=== PATIENT | female | born 1930 | race Caucasian/White ===

== ENCOUNTER 2019-04-27 05:36 | Observation (INO) ==
--- NOTE | 2019-04-27 05:50 | PROVIDER DOCUMENTATION ---
HPI-Musculoskeletal Pain/Inj - GENERAL Chief Complaint: Fall Stated Complaint: weakness/ headache Time Seen by Provider: 04/27/19 05:48 Source: patient - HX OF PRESENT ILLNESS-MUSKULOSKELTAL Nature of Presenting Problem: Patient is a 88 year old white female complaining of generalized weakness and persistent left sided headache and bruising for past 2 weeks after falling off couch at home. Denies LOC. Patient arrives with GCS of 15, oriented to person,place, and time. Quality of Pain: reports: aching Severity in ED: moderate Onset/Duration: other (2 weeks ago) Timing: still present Any recent injury?: No Locality of Occurance: Home Similar Symptoms Previously?: Yes Recently seen or treated by another doctor?: No - FALL INJURY Location of Pain/Injury: reports: head, lower extremity (left hip and left knee) Pain Radiation: reports: no radiation Symptoms prior to fall:: reports: none Loss of Consciousness: no loss of consciousness Injury Associated Symptoms: reports: denies symptoms - HIP/PELVIS PAIN/INJURY Hip Pain Location: reports: hip (L) - LOWER EXTREMITY PAIN/INJURY Lower Extremities Pain: knee: left Review of Systems - Adult - REVIEW OF SYSTEMS - ADULT Constitutional: reports: no symptoms reported Eyes: reports: no symptoms reported Ears, Nose, Mouth & Throat: reports: no symptoms reported Cardiovascular: denies: chest pain Respiratory: denies: shortness of breath Gastrointestinal: denies: abdominal pain, nausea, vomiting Genitourinary: reports: no symptoms reported Musculoskeletal: reports: see HPI. denies: neck pain Integumentary: reports: no symptoms reported Neurological: reports: headache/migraines Psychiatric: reports: no symptoms reported Endocrine: reports: no symptoms reported Hematologic/Lymphatic: reports: no symptoms reported Allergic/Immunologic: reports: no symptoms reported All Other Systems: Reviewed and Negative Past History - Adult - PAST MEDICAL HISTORY-ADULT Review of Records: reports: Old Records Reviewed, Nursing Assessment Review, Medications Reviewed, Social history reviewed & non-contributory. Major Childhood Illnesses: reports: denies history Cardiovascular: reports: HTN Gastrointestinal: reports: GERD Genitourinary: reports: denies history Musculoskeletal: reports: arthritis Neurological: reports: denies history Psychiatric: reports: denies history - PRIOR SURGERIES/PROCEDURES Surgical/Procedure History: reports: reviewed, not pertinent, joint replacement (hip), other - PRIOR HOSPITALIZATIONS Prior Hospitalizations: reports: for other non-related - IMMUNIZATION STATUS Childhood Immunizations: See Nurse Assessment Flu Vaccine: See Nurse Assessment - FAMILY HISTORY Family History: reviewed, not pertinent - SOCIAL HISTORY Smoking: denies Substance Use: denies Alcohol Use Frequency: rarely Living Situation: family Physical Exam-Injury Related - Physical Exam-Injury Related General Appearance: alert, no apparent distress Eyes: PERRL/EOMI, other (bruising and tenderness over left upper face without deformities) Neck: non-tender, supple Respiratory: lungs clear, no respiratory distress, no accessory muscle use Cardiovascular: regular rate, rhythm Abdominal Exam: normal bowel sounds, non tender Lymphatic: no adenopathy Back Exam: normal inspection, no CVA tenderness Extremity: tenderness (tenderness and bruising over left knee, no deformities) Integumentary: warm/dry Neurologic: grossly normal Psych/Mental Status: anxious - Glascow Coma Score Best Eye Response (Angel): (4) open spontaneously Best Verbal Response (Angel): (5) oriented Best Motor Response ([place]): (6) obeys commands [place] Total: 15 Progress - PLAN OF CARE/RESULTS Progress/Plan/Lab Results: Vital Signs - 8 hr 04/27/19 06:03 Temperature 98.3 F Pulse Rate 67 Respiratory Rate 18 Blood Pressure 182/71 O2 Sat by Pulse Oximetry 100 Orders Category Date Time Status CT HEAD/C-SPINE W/O CONTRAST [CT] Stat Exams 04/27/19 05:38 Completed KNEE 3 VIEWS LEFT [RAD] Stat Exams 04/27/19 05:45 Ordered XRAY PELVIS W/HIP 2-3VW LT [RAD] Stat Exams 04/27/19 05:45 Ordered CBC WITH ELECTRONIC DIFF [HEME] Stat Lab 04/27/19 06:18 Ordered CMP [COMPREHENSIVE METABOLIC PANEL] [CHEM] Stat Lab 04/27/19 06:18 Uncollected URINALYSIS W/POSS RFLX CULT [URINALYSIS] Stat Lab 04/27/19 06:18 Uncollected Result Diagrams: 04/27/19 06:44 04/27/19 06:44 - EKG 1 Time of EKG reading by physician:: 06:01 EKG Read and Signed by:: Paul Blake Rate: 60 Rhythm: NSR ST Wave: non-specific ST changes Comments: no STEMI - CONSULTS/PCP/HOSPITALIST Notification #1 *Consult/PCP/Hospitalist*: [facility] Hospitalist Time Discussed: 08:37 Consult Disposition: Will see in ED, Admit - CHANGE OF SHIFT REPORT (ED Provider) 1 Report Given and Care Transferred to:: Dr. Guillen Time of Transfer: 07:00 Items Pending: Labs, XRAY Results Departure - Departure Date of Disposition Decision: 04/27/19 Time of Disposition Decision: 08:35 DIAGNOSIS: Fall at home, UTI (urinary tract infection), Fecal impaction in rectum, Weakness Disposition: ADMITTED INPATIENT 09 Certified Medical Emergency: Emergent Condition: Fair - Critical Care Note This patient required my direct & personal management of CC.: No Attestation - Physician/ MORENO Attestation Patient care was provided by Advanced Practice Provider:: No The physician spent face to face time with patient:: Yes Advanced Practice Provider documentation review:: Supervising physician onsite and consulted in the evaluation and care of this patient. The physician did have a face to face encounter with the patient.
--- NOTE | 2019-04-27 06:09 | Diag Imaging Result Doc PS360 ---
EXAM : CT HEAD/C-SPINE W/O CONTRAST HISTORY: fall, head injury TECHNIQUE: 1. CT head without contrast 2. CT cervical spine without contrast COMPARISON: 09/08/2018 FINDINGS: Head: No parenchymal hemorrhage. No epidural or subdural hematoma. No subarachnoid hemorrhage. There are prominent chronic microvascular ischemic changes as well as moderate atrophy. No mass identified on this noncontrasted exam. No hydrocephalus. No skull fracture. Cervical spine: Mild scoliosis. Moderate degenerative changes throughout the mid and lower cervical spine. The bones are osteopenic. No precervical soft tissue swelling. No fracture. Prominent atherosclerosis in the carotid bulbs IMPRESSION: Head: No hemorrhage. No injury. Cervical spine: No acute fracture. This exam was performed using automated exposure control, adjustment of mA or kV according to patient size, and/or use of iterative reconstruction technique. Electronically signed by Celestino Rincon 04/27/2019 6:07 AM
--- NOTE | 2019-04-27 06:55 | Diag Imaging Result Doc PS360 ---
XRAY PELVIS W/HIP 2-3VW LT - 04/27/2019 INDICATION: left hip pain TECHNIQUE: Three views COMPARISON: None FINDINGS: There is a left femoral head prosthesis in good position. No hardware fracture or loosening. Alignment is anatomic. There is severe rectal stool impaction. There is a 9.5 cm rectal stool ball. IMPRESSION: Severe rectal stool impaction. Electronically signed by Bony Escamilla 04/27/2019 6:53 AM
--- NOTE | 2019-04-27 06:56 | Diag Imaging Result Doc PS360 ---
KNEE 3 VIEWS LEFT - 04/27/2019 INDICATION: left knee pain TECHNIQUE: Three views COMPARISON: None FINDINGS: Bones are osteopenic. No fracture or subluxation. Joint spaces are preserved. IMPRESSION: No acute disease. Electronically signed by Bony Escamilla 04/27/2019 6:54 AM
[2019-04-27 07:05] LABS: BASO# 0.01 X1000 (0.0-0.2); BASO% 0.1 % (0.0-0.8); EOS# 0.05 X1000 (0.0-0.7); EOS% 0.7 % (0.0-10.0); HEMATOCRIT 39.2 % (37.0-47.0); HEMOGLOBIN 12.4 g/dL (12.0-16.0); IMM GRAN# 0.03 X1000 (0.0-0.04); IMM GRAN% 0.4 % (0.0-0.5); LYMPH# 0.61 X1000 (1.2-3.4); LYMPH% 8.8 % (20.5-51.1); MCHC 31.6 g/dL (33-37); MCV 91.8 FL (81-99); MONO# 0.78 X1000 (0.11-0.59); MONO% 11.2 % (1.7-9.3); MPV 10.9 FL (7.4-10.4); NEUT# 5.48 X1000 (1.4-6.5); NEUT% 78.8 % (42.2-75.2); PLT 173 X1000 (130-400); RBC 4.27 XMIL (4.2-5.4); RDW 13.3 % (11.5-14.5); WBC 6.96 X1000 (4.8-10.8)
[2019-04-27 07:26] LABS: AGAP 14; ALB/GLOB RATIO 2.2; ALBUMIN 4.6 g/dL (3.5-5.0); ALKALINE PHOSPHATASE 56 U/L (32-104); BUN 12 mg/dL (8-22); CALCIUM 9.1 mg/dL (8.8-10.2); CHLORIDE 105 mmol/L (98-107); COSMO 288; CREATININE 0.5 mg/dL (0.5-0.9); ESTIMATED GFR > 60; GLUCOSE 130 mg/dL (70-104); GOT 16 U/L (10-30); GPT 5 U/L (10-36); POTASSIUM 3.6 mmol/L (3.5-5.1); SODIUM 144 mmol/L (136-145); TCO2 25 mmol/L (25-35); TOTAL BILIRUBIN 0.36 mg/dL (0.20-1.00); TOTAL PROTEIN 6.7 g/dL (6.3-8.3)
[2019-04-27 07:34] LABS: URINE SOURCE CLEAN CATCH
[2019-04-27 07:43] LABS: BILIRUBIN URINE NEGATIVE (NEGATIVE); BLOOD URINE NEGATIVE (NEGATIVE); COLOR YELLOW; GLUCOSE URINE NEGATIVE (NEGATIVE); KETONE URINE NEGATIVE (NEGATIVE); LEUKOCYTES URINE MODERATE (NEGATIVE); NITRITE URINE NEGATIVE (NEGATIVE); PH URINE 6.5; PROTEIN URINE TRACE mg/dL (NEGATIVE); SP GRAVITY URINE 1.016; TURBIDITY URINE HAZY (CLEAR); UROBILINOGEN URINE NORMAL (NORMAL)
[2019-04-27] MEDS ORDERED: ZOFRAN IV ONE (07:43)
[2019-04-27 07:50] LABS: UR EPITHELIAL CELLS <10 /HPF (<10); URINE BACTERIA 1+ /HPF; URINE RBC <10 /HPF (<10); URINE WBC TNTC /HPF (<10)
[2019-04-27 08:10] LABS: URINE YEAST NONE SEEN
[2019-04-27] MEDS ORDERED: ZOFRAN IV PRN (08:40)
--- NOTE | 2019-04-27 09:41 | EKG Report ---
Test Performed on : 04/27/2019 06:00:47 AM Test Reason : WEAKNESS/HEADACHE Blood Pressure : / mmHG Vent. Rate : 060 BPM Atrial Rate : 066 BPM P-R Int : 160 ms QRS Dur : 084 ms QT Int : 444 ms P-R-T Axes : 038 007 067 degrees QTc Int : 444 ms Undetermined rhythm Otherwise normal ECG No previous ECGs available Unconfirmed Result
[2019-04-27] MEDS ORDERED: FIORICET PO PRN (10:54)
[2019-04-27] MEDS: PEPCID PO SCH (13:00)
[2019-04-27] MEDS: NS 1,000 ML IV SCH (13:00)
[2019-04-27] MEDS ORDERED: ROCEPHIN 1 GM in NS 50 ML IV ONE (13:00)
[2019-04-27] MEDS: PRINIVIL PO SCH (13:00)
[2019-04-27] MEDS: NORVASC PO SCH (13:00)
[2019-04-27] MEDS: PERICOLACE PO SCH ×2 (13:01→22:48)
[2019-04-27] MEDS: PRAVACHOL PO SCH (13:02)
[2019-04-27] MEDS: ROCEPHIN 1 GM in NS 50 ML IV ONE (13:11)
--- NOTE | 2019-04-27 15:06 | HISTORY AND PHYSICAL ---
PRIMARY CARE PROVIDER: Dr. Samuel Rod. CHIEF COMPLAINT: Headache, falls, foul-smelling urine, constipation. HISTORY OF PRESENT ILLNESS: Ms. Tiffanie Jenkins is an 88-year-old female with a medical history of hypertension, GERD, arthritis, hyperlipidemia, who states that she had a fall 2 weeks ago, has since then had an on and off left-sided headache that gets pretty severe. She has had some general weakness, and according to her and her daughter, she only has a fall maybe once every few months, and it is usually due to dizziness. Really no other pain from that, except that she has a bruise on her left face, she has a bruise on her right arm and her left knee. She also states that she only has bowel movements every 2 to 3 days, and that she has been having some issues with constipation. Today, she has had a very large bowel movement after enema. On top of that, she has had foul-smelling urine and maybe some bladder pressure. Had some chills last night and was sweaty, but no fever, and urinalysis reveals that she has a urinary tract infection, so we will admit her, start her on some fluids, antibiotics, stool softener, physical therapy, and some Fioricet for her headache. PAST MEDICAL HISTORY: 1. Hypertension. 2. GERD. 3. Arthritis. 4. Hyperlipidemia. PAST SURGICAL HISTORY: 1. Left hip replacement. 2. Tonsillectomy and adenoidectomy. 3. Appendectomy. SOCIAL HISTORY: Denies tobacco, alcohol, or illicit drug use. She lives at home with her and son. She uses a rolling walker for ambulation. FAMILY HISTORY: Mother: No medical conditions that she can remember. Father had a stroke in his 70s. ALLERGIES: Codeine, Demerol, morphine. HOME MEDICATIONS: 1. Pepcid 20 mg p.o. daily. 2. Lisinopril 20 mg p.o. daily. 3. Norvasc 5 mg p.o. daily. 4. Pravastatin 40 mg p.o. daily. REVIEW OF SYSTEMS: A 14-point review of systems was complete, and all were negative, except for those mentioned in the above HPI. PHYSICAL EXAMINATION: VITAL SIGNS: Temperature 97.7 degrees, heart rate 69, respiratory rate 13, blood pressure 148/66, O2 saturation 97% on room air. GENERAL: Ms. Tiffanie Jenkins is an 88-year-old female. She is in no acute distress. She is able to answer questions appropriately. HEENT: Atraumatic, normocephalic. Pupils equal, round, and reactive to light. Extraocular movements intact. Mucous membranes are dry. She also has an old ecchymosis on the left cheek bone. NECK: Trachea midline. CARDIOVASCULAR: S1, S2. Regular rate and rhythm. No rubs, gallops, murmurs. No lower extremity edema. There are +2 dorsalis and radial pulses. Negative for JVD or carotid bruits. PULMONARY: Clear to auscultation. Bilateral breath sounds. No accessory muscle use or work of breathing noted. GASTROINTESTINAL: Soft, nontender, nondistended. Positive bowel sounds x4. EXTREMITIES: Decreased strength 4/5 to all extremities. Decreased range of motion. NEUROLOGIC: A and O x3. Follows commands. Sensory is intact. SKIN: Warm, dry, intact. Some abrasions on the right arm with bruising. Left cheekbone has bruising. Left knee also has bruising, and these are old bruises consistent with the fall. LABORATORY DATA: White blood cells 6000, hemoglobin 12, hematocrit 39, platelet count 173,000. Sodium 144, potassium 3.6, BUN 12, creatinine 0.5, glucose 130, calcium 9.1. Bilirubin 0.36, AST 16, ALT 5, albumin is 4.6. Urinalysis: Trace protein, moderate leukocytes, too numerous to count white blood cells, 1+ bacteria, no yeast. IMAGING: Head and cervical spine CT: No injury or fracture. Hip and pelvic x- ray: Severe rectal stool impaction, 9 cm rectal stool ball. Left knee: No acute findings. EKG: Sinus rhythm, rate 60, QTc is 444. ASSESSMENT AND PLAN: 1. Fall 2 weeks ago, resulting in left headache for the last 2 weeks with increasing generalized weakness. Will do physical therapy for the weakness. Will do Fioricet for the headaches. 2. Constipation. She got an enema and had a large bowel movement today. Will do stool softeners scheduled. 3. Urinary tract infection with the only symptom being foul-smelling urine, chills with sweats last night. She has been started on Rocephin. 4. Hypertension. Continue home medications, although she is on an angiotensin- converting enzyme and an angiotensin-receptor adams. It is reported that she has dizzy spells when she stands up from time to time. Maybe consider removing one blood pressure medication to decrease the risk of orthostasis at her age. 5. Gastroesophageal reflux disease. Continue Pepcid and Protonix. 6. Hyperlipidemia. Continue statin. 7. Deep venous thrombosis prophylaxis. Sequential compression devices. Dictated by TATIANA Brooks for Cuong Parsons MD Addendum: Patient seen and examined by myself. Agree with TATIANA note. It reflects my assessment and plan. Patient is being admitted to hospital for recurrent falls and UTI. Will start Ceftriaxone while we wait for results of urine culture. Will consult PT as well. cc: TATIANA Brooks MD Johnathan Scribe [facility]
[2019-04-27] MEDS: MIRALAX PO SCH (16:34)
[2019-04-27] MEDS: TYLENOL PO PRN (18:19)
[2019-04-27] MEDS ORDERED: MOTRIN PO PRN (18:49)
[2019-04-28] MEDS: NS 1,000 ML IV SCH ×2 (04:33→17:50)
[2019-04-28] MEDS: TYLENOL PO PRN (04:33)
[2019-04-28 07:54] LABS: BASO# 0.02 X1000 (0.0-0.2); BASO% 0.7 % (0.0-0.8); EOS% 3.5 % (0.0-10.0); HEMATOCRIT 36.8 % (37.0-47.0); HEMOGLOBIN 11.4 g/dL (12.0-16.0); LYMPH# 0.66 X1000 (1.2-3.4); LYMPH% 23.4 % (20.5-51.1); MCH 28.9 PG (27-31); MCV 93.4 FL (81-99); MONO# 0.54 X1000 (0.11-0.59); MONO% 19.1 % (1.7-9.3); NEUT% 53.3 % (42.2-75.2); PLT 162 X1000 (130-400); RBC 3.94 XMIL (4.2-5.4); RDW 13.4 % (11.5-14.5); WBC 2.82 X1000 (4.8-10.8)
[2019-04-28 08:16] LABS: AGAP 14; ALB/GLOB RATIO 2.4; ALBUMIN 4.1 g/dL (3.5-5.0); ALKALINE PHOSPHATASE 50 U/L (32-104); BUN 10 mg/dL (8-22); CHLORIDE 108 mmol/L (98-107); COSMO 286; CREATININE 0.5 mg/dL (0.5-0.9); ESTIMATED GFR > 60; GLUCOSE 95 mg/dL (70-104); GOT 15 U/L (10-30); GPT < 5 U/L (10-36); POTASSIUM 3.5 mmol/L (3.5-5.1); SODIUM 144 mmol/L (136-145); TCO2 22 mmol/L (25-35); TOTAL BILIRUBIN 0.45 mg/dL (0.20-1.00); TOTAL PROTEIN 5.8 g/dL (6.3-8.3)
[2019-04-28] MEDS: PERICOLACE PO SCH ×2 (08:52→20:20)
[2019-04-28] MEDS: PEPCID PO SCH (08:52)
[2019-04-28] MEDS: PRAVACHOL PO SCH (08:52)
[2019-04-28] MEDS: MIRALAX PO SCH (08:52)
[2019-04-28] MEDS: NORVASC PO SCH (08:52)
[2019-04-28] MEDS: PRINIVIL PO SCH (08:52)
[2019-04-28] MEDS ORDERED: ROCEPHIN 1 GM in NS 50 ML IV SCH (13:00)
--- NOTE | 2019-04-28 15:13 | PROGRESS NOTE ---
DATE: 04/28/2019 SUBJECTIVE: Patient reports feeling fine. Reports walking with physical therapy. Denies any sensation of dizziness or lightheadedness. OBJECTIVE: Vital Signs: Temperature 97.7 degrees, heart rate 67, respiratory 16, blood pressure 143/69, and O2 saturation 100% on room air. General: On examination, this is an 88-year-old female lying in bed, in no acute distress. Cardiovascular: S1, S2 heard. No murmurs, gallops, or rubs. Regular rate and rhythm. Respiratory: Clear bilaterally to auscultation. No work of breathing or using accessory muscles. Abdomen: Soft, nontender to palpation. Bowel sounds present. No organomegaly. Extremities: No clubbing, cyanosis or edema. Peripheral pulses present in both legs. Neurological: Patient alert and oriented x3. Moves 4 extremities. LABORATORY DATA: White cell count 2.82, hemoglobin 11.4, hematocrit 36.8, platelets 162 with normal BMP. The urine culture showed no growth. ASSESSMENT AND PLAN: 1. Recurrent falls. The patient reports feeling weak. I have recommend this patient to rehabilitation facility, but she is very reluctant to go there because she said that [employer] will take her check, and she cannot afford it now, so for disposition she needs to be sent to home with home health if needed. 2. Urinary tract infection. Clinically, the patient had symptoms, and even though the urine culture is negative, we will continue with antibiotics and we will switch to oral, I think probably Levaquin once she is ready to go. 3. Hypertension. There was a suspicion on admission that blood pressure can cause these dizzy spells but blood pressure has been in the range of 120 to 143. At this point, we will continue with current antihypertensive medicines. 4. Gastroesophageal reflux disease. We will continue with Pepcid and Protonix. 5. Hyperlipidemia. We will continue with the statin. 6. Disposition. At this point, we will keep this patient 1 more day. We will call physical therapy and occupational therapy, and if she is feeling better we can let this patient go with home health. cc: Cuong Parsons MD [facility]
[2019-04-29] MEDS: TYLENOL PO PRN (01:29)
[2019-04-29] MEDS: NS 1,000 ML IV SCH (05:53)
[2019-04-29 06:31] VITALS: BP 138/63
[2019-04-29 08:00] LABS: AGAP 13; ALB/GLOB RATIO 2.4; ALBUMIN 3.8 g/dL (3.5-5.0); ALKALINE PHOSPHATASE 47 U/L (32-104); BUN 11 mg/dL (8-22); CALCIUM 8.8 mg/dL (8.8-10.2); CHLORIDE 107 mmol/L (98-107); COSMO 282; CREATININE 0.5 mg/dL (0.5-0.9); ESTIMATED GFR > 60; GLUCOSE 94 mg/dL (70-104); GOT 15 U/L (10-30); GPT < 5 U/L (10-36); POTASSIUM 3.5 mmol/L (3.5-5.1); SODIUM 142 mmol/L (136-145); TCO2 22 mmol/L (25-35); TOTAL BILIRUBIN 0.37 mg/dL (0.20-1.00); TOTAL PROTEIN 5.4 g/dL (6.3-8.3)
[2019-04-29 08:30] LABS: BASO# 0.02 X1000 (0.0-0.2); BASO% 0.8 % (0.0-0.8); EOS# 0.14 X1000 (0.0-0.7); EOS% 5.7 % (0.0-10.0); HEMATOCRIT 34.3 % (37.0-47.0); HEMOGLOBIN 10.7 g/dL (12.0-16.0); LYMPH# 0.76 X1000 (1.2-3.4); LYMPH% 30.9 % (20.5-51.1); MCH 28.9 PG (27-31); MCHC 31.2 g/dL (33-37); MCV 92.7 FL (81-99); MONO# 0.37 X1000 (0.11-0.59); MPV 11.3 FL (7.4-10.4); NEUT# 1.17 X1000 (1.4-6.5); NEUT% 47.6 % (42.2-75.2); PLT 163 X1000 (130-400); RDW 13.2 % (11.5-14.5); WBC 2.46 X1000 (4.8-10.8)
[2019-04-29] MEDS: PEPCID PO SCH (09:00)
[2019-04-29] MEDS: PRINIVIL PO SCH (09:00)
[2019-04-29] MEDS: PERICOLACE PO SCH (09:00)
[2019-04-29] MEDS: PRAVACHOL PO SCH (09:00)
[2019-04-29] MEDS: MIRALAX PO SCH (09:00)
[2019-04-29] MEDS: NORVASC PO SCH (09:01)
--- NOTE | 2019-04-30 17:36 | DISCHARGE SUMMARY ---
ADMISSION DATE: 04/27/2019 DISCHARGE DATE: 04/29/2019 DISCHARGE DIAGNOSES: 1. Recurrent falls. 2. Urinary tract infection. 3. Hypertension. 4. Gastroesophageal reflux disease. CONSULTATIONS: None. PROCEDURES: 1. Hip and pelvis x-ray showed severe rectal stool impaction. 2. Head and cervical spine CT showed no hemorrhage in the head, and cervical spine, no acute fracture. HOSPITAL COURSE: In brief, this is a patient who was admitted to the hospital for having recurrent falls and also she was found out to have a urinary tract infection. She was actually symptomatic with dysuria for the last few days. Patient was started on antibiotics and she reported feeling better. Urine culture was negative, but considering that she had this dysuria getting better, I decided to continue with antibiotics. She was also provided physical therapy and she was recommended if she wanted to go to rehab facility, but she said that she cannot afford any rehab at this time, so she preferred to have home health arranged instead. The patient is going to be discharged today in stable condition. DISCHARGE PHYSICAL EXAMINATION: vital signs: Temperature 97.4 degrees, heart rate 64, respiratory rate 16, blood pressure 138/63, O2 saturation 96% on room air. General: This is an 88-year-old, female, lying in bed, in no acute distress. Cardiovascular: S1, S2 heard. No murmurs, gallops, or rubs. Regular rate and rhythm. Respiratory: Clear bilaterally to auscultation. No work of breathing or using accessory muscles. Abdomen: Soft, nontender to palpation. Bowel sounds present. No organomegaly. Extremities: No clubbing, cyanosis, or edema. Peripheral pulses present in both legs. Neurological: The patient is alert and oriented x3. Moves 4 extremities. DISCHARGE DISPOSITION: Home to self-care. MEDICATIONS: Levofloxacin 500 mg 1 tablet p.o. daily for a week. cc: Cuong Parsons MD
== END 2019-04-29 09:58 | disposition home health service (06) ==
LOC: ED 05:36 → OPS 08:36 → 3N 08:36 → SURHOLD 08:36 → EDIPHOLD 09:49 → 3N 16:27
PROVIDERS: ADMIT Internal Medicine; ATTEND Internal Medicine